=== PATIENT | female | born 1965 | race Caucasian/White ===

== ENCOUNTER 2019-09-07 09:47 | Emergency (ER) | payer OTHER ==
[~2019-09-07] VITALS: Ht 157.5 cm; Wt 73.0 kg
[2019-09-07 09:55] VITALS: Ht 157.5 cm; Wt 73.0 kg
[2019-09-07 11:39] VITALS: BP 162/63
== END 2019-09-07 11:39 | disposition home or self-care (01) ==
LOC: ED 09:47
DX: L02.415 Cutaneous abscess of right lower limb (principal)
CPT/HCPCS: J2001